=== PATIENT | female | born 1990 | race African-American/Black ===

== ENCOUNTER 2017-08-14 17:50 | Emergency (ER) | payer OTHER ==
[~2017-08-14] VITALS: Ht 160 cm; Wt 54.4 kg
[2017-08-14] MEDS ORDERED: NORFLEX100 MG PO (19:03)
[2017-08-14] MEDS ORDERED: NAPROSYN500 MG PO (19:03)
== END 2017-08-14 19:36 | disposition home or self-care (01) ==
LOC: ER 17:50
DX: S16.1XXA Strain of muscle, fascia and tendon at neck level, initial encounter (principal); V89.2XXA Person injured in unspecified motor-vehicle accident, traffic, initial encounter; Y93.89 Activity, other specified; Y92.89 Other specified places as the place of occurrence of the external cause; Y99.8 Other external cause status